=== PATIENT | male | born 1985 | race Caucasian/White ===

== ENCOUNTER 2018-10-05 10:08 | Emergency (ER) | payer OTHER ==
[2018-10-05 10:14] VITALS: BP 129/97
--- NOTE | 2018-10-05 10:53 | ED Physician Documentation ---
PD HPI URI - Stated complaint Stated Complaint: SORE THROAT/COUGH - Chief complaint Chief Complaint: Heent - Additional information Additional information: 32-year-old male presents the emergency department with 1 day of body aches, chills, fever, sore throat and general fatigue. The patient reports that his and son both tested positive for the flu and his was started on Tamiflu yesterday. The patient denies chest pain or shortness of breath. No other associated symptoms. No attempts at symptom management Review of Systems Constitutional: reports: Fever, Chills, Myalgias, Fatigue Eyes: denies: Discharge Ears: denies: Ear pain Nose: reports: Congestion Throat: reports: Sore throat Cardiac: denies: Chest pain / pressure Respiratory: denies: Dyspnea GI: denies: Abdominal Pain Skin: denies: Rash Immunocompromised: denies: Chemotherapy PD PAST MEDICAL HISTORY - Past Surgical History Past Surgical History: No - Present Medications Home Medications: Ambulatory Orders Medication Instructions Recorded Confirmed Oseltamivir [Tamiflu] 75 mg PO BID 5 Days capsule 10/05/18 - Allergies Allergies/Adverse Reactions: Allergies Allergy/AdvReac Type Severity Reaction Status Date / Time amoxicillin [Amoxicillin] Allergy Rash Verified 10/05/18 10:15 penicillin G Allergy Hives Verified 10/05/18 10:15 - Social History Does the pt smoke?: No Smoking Status: Never smoker Does the pt drink ETOH?: No Does the pt have substance abuse?: No - Immunizations Immunizations are current?: Yes PD ED PE NORMAL - General General: Alert and oriented X 3, No acute distress - HEENT HEENT: Atraumatic, PERRL, EOMI, Ears normal, Pharynx benign - Cardiac Cardiac: RRR, Strong equal pulses - Respiratory Respiratory: No respiratory distress - Derm Derm: Normal color - Extremities Extremities: No deformity - Neuro Neuro: Alert and oriented X 3, Normal speech - Psych Psych: Normal affect Results - Vitals Vitals: Vital Signs - 24 hr 10/05/18 10:13 Temperature 36.3 C L Heart Rate 96 Respiratory 14 Rate Blood Pressure 129/97 H O2 Saturation 100 Oxygen O2 Source Room air - Labs Labs: Laboratory Tests 10/05/18 10:20 Influenza A (Rapid) Negative Influenza B (Rapid) Negative PD MEDICAL DECISION MAKING - ED course ED course: The patient has requested Tamiflu since his is on the medication, I advised him of the side effects and the slight benefit. The patient still wants the medication. The patient will follow up with primary care. The patient will return to the emergency department for any worsening or any concerns Departure - Departure Disposition: 01 Home, Self Care Clinical Impression: Influenza-like illness Condition: Good Instructions: ED Flu Follow-Up: [facility] [Provider Group] - Within 1 week Prescriptions: Oseltamivir [Tamiflu] 75 mg PO BID 5 Days capsule Comments: Please return to the Department for worsening symptoms or new concerns
== END 2018-10-05 11:10 | disposition home or self-care (01) ==
LOC: ED 10:08
DX: J11.1 Influenza due to unidentified influenza virus with other respiratory manifestations (principal)
CPT/HCPCS: 87070; 87275; 87276; 87430; 99283

== ENCOUNTER 2019-06-04 16:33 | Emergency (ER) | payer OTHER ==
[2019-06-04 16:39] VITALS: BP 150/86
[2019-06-04] MEDS ORDERED: CHERRY SYRUP 10 ML UDC PO ONE (16:53)
[2019-06-04] MEDS ORDERED: DEXAMETHASONE 10 MG/ML VIAL PO STA (16:53)
--- NOTE | 2019-06-04 16:58 | ED Physician Documentation ---
PD HPI URI - Stated complaint Stated Complaint: COUGH, EAR PX - Chief complaint Chief Complaint: Resp - History obtained from History obtained from: Patient - History of Present Illness Timing - onset: How many days ago (4) Timing duration: Days (4) Timing details: Gradual onset, Still present Associated symptoms: Fever, Nasal congestion, Rhinorrhea, Productive cough Contributing factors: Sick contact Improves by: Rest, Medication Worsened by: Activity Similar symptoms before: Diagnosis (URI) Recently seen: Not recently seen - Additional information Additional information: 33-year-old male who has a 6-year-old son who is sick with otitis is developed a cough and congestion. He has been producing a lot of yellow and green phlegm and he is not short of breath he feels that the phlegm is coming from the back of his throat. He denies any ear pain he has a scratchy throat. Review of Systems Constitutional: reports: Fever Eyes: denies: Decreased vision Ears: denies: Ear pain Nose: reports: Rhinorrhea / runny nose, Congestion Throat: reports: Sore throat Cardiac: denies: Chest pain / pressure, Palpitations Respiratory: reports: Cough. denies: Dyspnea GI: denies: Vomiting PD PAST MEDICAL HISTORY - Past Medical History Past Medical History: No - Past Surgical History Past Surgical History: No - Present Medications Home Medications: Ambulatory Orders Medication Instructions Recorded Confirmed Azithromycin [Zithromax] 250 mg PO DAILY #6 tablet 06/04/19 - Allergies Allergies/Adverse Reactions: Allergies Allergy/AdvReac Type Severity Reaction Status Date / Time amoxicillin [Amoxicillin] Allergy Rash Verified 10/05/18 10:15 penicillin G Allergy Hives Verified 06/04/19 16:39 - Social History Does the pt smoke?: No Smoking Status: Never smoker Does the pt drink ETOH?: No Does the pt have substance abuse?: No - Immunizations Immunizations are current?: Yes PD ED PE NORMAL - Vitals Vital signs reviewed: Yes (hypertensive) - General General: Alert and oriented X 3, No acute distress, Well developed/nourished - HEENT HEENT: Atraumatic, PERRL, EOMI, Ears normal, Moist mucous membranes, Other (There is inflamation to the posterior pharynx and swelling to the base of the left tonsillar pillar) - Neck Neck: Supple, no meningeal sign, No bony TTP - Cardiac Cardiac: RRR, No murmur - Respiratory Respiratory: No respiratory distress, Clear bilaterally - Abdomen Abdomen: Soft, Non tender - Derm Derm: Normal color, Warm and dry, No rash - Extremities Extremities: No deformity, No edema - Neuro Neuro: Alert and oriented X 3, web art director 2-12 intact, No motor deficit, No sensory deficit, Normal speech Eye Opening: Spontaneous Motor: Obeys Commands Verbal: Oriented GCS Score: 15 - Psych Psych: Normal mood, Normal affect Results - Vitals Vitals: Vital Signs - 24 hr 06/04/19 16:37 Temperature 37.1 C Heart Rate 94 Respiratory 20 Rate Blood Pressure 150/86 H O2 Saturation 100 Oxygen O2 Source Room air PD MEDICAL DECISION MAKING - ED course Complexity details: considered differential, d/w patient ED course: 33-year-old male with a productive cough and postnasal drainage has swelling in the back of the pharynx. He is administered dexamethasone 10 mg orally and we will place him on some azithromycin. Departure - Departure Disposition: 01 Home, Self Care Clinical Impression: Upper respiratory tract infection Qualifiers: URI type: unspecified URI Qualified Code(s): J06.9 - Acute upper respiratory infection, unspecified Condition: Stable Instructions: ED Upper Resp Infec Abx Tx Follow-Up: [facility] [Provider Group] Prescriptions: Azithromycin [Zithromax] 250 mg PO DAILY #6 tablet
== END 2019-06-04 17:03 | disposition home or self-care (01) ==
LOC: ED 16:33
DX: J06.9 Acute upper respiratory infection, unspecified (principal)
CPT/HCPCS: 99282; 99284; A9270

== ENCOUNTER 2023-06-21 16:28 | Emergency (ER) | payer OTHER ==
[2023-06-21 16:53] VITALS: O2SAT 100
[2023-06-21] MEDS ORDERED: LIDOCAINE VISCOUS 2% 15 ML ORAL SYRINGE MM STA (19:28)
[2023-06-21] MEDS ORDERED: MAG HYDROX/AL HYDROX/SIMETH 30 ML UDC PO STA (19:28)
--- NOTE | 2023-06-21 19:31 | ED Physician Documentation ---
PD HPI ABD PAIN - Stated complaint Stated Complaint: ABD PX/GI - Chief complaint Chief Complaint: Abd Pain - History obtained from History obtained from: Patient - Additional information Additional information: 37-year-old male who has no significant past medical history presents with feeling constipated for the last 3 days or so. He is passing some stool but states it is not very much and it somewhat hard to do. He is also passing gas but that is sometimes uncomfortable. He is able to tolerate p.o., no nausea or vomiting and no fever or chills. No dysuria urgency or frequency. No concern fo r STI. He does have some mild midepigastric pain as well that does not seem to be worse with p.o. intake. He does eat a lot of spicy foods, rare etoh or nsaids. Patient has a history of a similar episode about 15 years ago thought it was much worse at that time and states that he was just given a bunch of laxatives as well as Maalox and it resolved. He states no abdominal surgeries in the past, no history of bowel obstruction, no narcotic use. PD PAST MEDICAL HISTORY - Past Medical History Past Medical History: No - Past Surgical History Past Surgical History: No - Present Medications Home Medications: Ambulatory Orders Medication Instructions Recorded Confirmed Azithromycin [Zithromax] 250 mg PO DAILY #6 tablet 06/04/19 Omeprazole Magnesium 20 mg PO DAILY #30 cap 06/21/23 polyethylene glycoL 3350(BULK) 17 gm PO DAILY PRN #1 each 06/21/23 [Miralax] - Allergies Allergies/Adverse Reactions: Allergies Allergy/AdvReac Type Severity Reaction Status Date / Time amoxicillin [Amoxicillin] Allergy Rash Verified 06/21/23 16:47 penicillin G Allergy Hives Verified 06/21/23 16:47 - Social History Does the pt smoke?: No Smoking Status: Never smoker Does the pt drink ETOH?: No Does the pt have substance abuse?: No - Immunizations Immunizations are current?: Yes PD ED PE NORMAL - Vitals Vital signs reviewed: Yes - General General: Alert and oriented X 3, No acute distress, Well developed/nourished - HEENT HEENT: Atraumatic, Moist mucous membranes - Cardiac Cardiac: RRR, No murmur - Respiratory Respiratory: No respiratory distress, Clear bilaterally - Abdomen Abdomen: Normal bowel sounds, Soft, Non distended, Other (Active bowel tones, mild midepigastric tenderness, no other areas of abdominal tenderness or distention) - Derm Derm: Normal color, Warm and dry, No rash Results - Vitals Vitals: Vital Signs - 24 hr 06/21/23 06/21/23 16:47 19:48 Temperature 36.8 C 36.6 C Heart Rate 100 75 Respiratory 16 20 Rate Blood Pressure 160/100 H 128/76 O2 Saturation 100 100 Oxygen O2 Source Room air - Rads (name of study) No standard instances Relevant Findings:: Final report received, See rad report PD Medical Decision Making - ED course Complexity details: reviewed results, re-evaluated patient, considered differential, d/w patient ED course: 37-year-old male presented stating he felt constipated for the last several days, he has been passing some stool but not as much as normal, and he is also had some lower abdominal discomfort as well as midepigastric discomfort. He is tolerating p.o. well, no fever. On arrival here, the patient is nontoxic- appearing, vital signs are stable, on physical exam he has active bowel tones, mild midepigastric tenderness and no other abdominal tenderness or distention. Differentials considered included constipation, GERD PUD, bowel obstruction, diverticulitis, colitis. Have low suspicion for appendicitis or cholecystitis based on his physical exam. Given his concern for possible constipation, did obtain an x-ray which was negative, no signs of obstruction. Patient received Maalox here because of his left do this. I discussed findings on the x-ray with him and advised that we could obtain a CT scan if he was not feeling substantially better versus trying outpatient supportive measures and following up if worsening. Patient would like to go home at this point in time but will return if he develops a fever, vomiting or increasing abdominal pain. I recommended Tylenol as needed, a low-fatdiet, infected fairly bland diet for the next several days and Then advance as tolerated. He will be discharged home with his needed MiraLAX and omeprazole. Departure - Departure Disposition: Home, Self Care Clinical Impression: Constipation Qualifiers: Constipation type: unspecified constipation type Qualified Code(s): K59.00 - Constipation, unspecified Abdominal pain Qualifiers: Abdominal location: lower abdomen, unspecified Qualified Code(s): R10.30 - Lower abdominal pain, unspecified Condition: Good Instructions: ED Constipation Prescriptions: polyethylene glycoL 3350(BULK) [Miralax] 17 gm PO DAILY PRN #1 each PRN Reason: Constipation Omeprazole Magnesium 20 mg PO DAILY #30 cap Comments: You xray was stable. You may still have some constipation or possibly mild diverticulitis. You also have some symptoms of GERD with your upper abdominal pain. I recommend eating a bland diet for the next week or so, lots of fruits/vegetables/fiber. You can take omeprazole for the upper abdominal discomfort and avoid spicy foods. I also recommend that you take MiraLAX daily until regular bowel movements. You can take Tylenol as needed for pain. If you develop a fever, vomiting, increasing abdominal pain or new concerns, please return to the ER. Forms: PCP List
[2023-06-21] MEDS ORDERED: LACTULOSE 10 GM /15 ML UDC PO STA (20:35)
--- NOTE | 2023-06-21 21:21 | XRAY Report ---
PROCEDURE: Abdomen 2 View X-Ray INDICATIONS: constipated TECHNIQUE: 2 views of the abdomen were acquired. COMPARISON: None. FINDINGS: Surgical changes and devices: None. Bowel: No pneumoperitoneum. The bowel gas pattern is normal. Stool load within normal limits. Soft tissues: No masses; visualized solid organ contours appear normal in size. No suspicious abdom inal calcifications. Bones: No suspicious bony abnormalities. IMPRESSION: No visualized constipation. Reviewed by: Krissy Santoro MD on 06/21/2023 9:20 PM [facility] Approved by: Krissy Santoro MD on 06/21/2023 9:20 PM [facility] Station ID: [id number]
[2023-06-21 21:49] VITALS: BP 134/85
== END 2023-06-21 21:43 | disposition home or self-care (01) ==
LOC: ED 16:28
DX: K59.00 Constipation, unspecified (principal)
CPT/HCPCS: 74019; 99283; A9270

== ENCOUNTER 2023-06-23 13:15 | Outpatient (CLI) | payer OTHER ==
[2023-06-23 17:55] LABS: BASOPHILS % (AUTO) 0.5 %; EOSINOPHILS % (AUTO) 0.5 %; HCT - HEMATOCRIT 47.9 % (42.0-52.0); HGB - HEMOGLOBIN 16.4 g/dL (14.0-18.0); LYMPHOCYTES # (AUTO) 1.3 10^3/uL (1.5-3.5); LYMPHOCYTES % (AUTO) 21.3 %; MEAN CORPUSCULAR HEMOGLOBIN 33.5 pg (27.0-31.0); MEAN CORPUSCULAR HGB CONC 34.2 g/dL (32.0-36.0); MEAN CORPUSCULAR VOLUME 97.8 fL (80.0-94.0); MEAN PLATELET VOLUME 9.7 fL (7.4-11.4); MONOCYTES # (AUTO) 0.5 10^3/uL (0.0-1.0); NEUTROPHILS # (AUTO) 4.1 10^3/uL (1.5-6.6); NEUTROPHILS % (AUTO) 68.5 %; PLT - PLATELET COUNT 229 10^3/uL (130-450)
[2023-06-23 18:24] LABS: ALBUMIN/GLOBULIN RATIO 2.5 (1.0-2.2); BILIRUBIN,TOTAL 0.6 mg/dL (0.2-1.0); POTASSIUM 4.3 mmol/L (3.5-4.5)
== END 2023-06-23 13:30 | disposition home or self-care (01) ==
LOC: LAB.N 13:15
PROVIDERS: ATTEND Family Medicine
DX: R10.32 Left lower quadrant pain (principal)
CPT/HCPCS: 36415; 80053; 83690; 85025